=== PATIENT | female | born 1965 | race Two or more races ===

== ENCOUNTER 2018-11-22 17:12 | Emergency (ER) | payer MEDICAID ==
[~2018-11-22] VITALS: Ht 149.9 cm; Wt 62.6 kg
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
--- NOTE | 2018-11-22 17:48 | NUR ---
DR CALLAHAN AT BEDSIDE
[2018-11-22] MEDS ORDERED: CARBAMAZEPINE 200 MG TABLET PO ONE (18:00)
[2018-11-22 18:06] LABS: BASOPHILS # (AUTO) 0.1 /CMM (0.0-0.2); BASOPHILS % (AUTO) 0.9 % (0.0-2.0); EOSINOPHILS % (AUTO) 2.8 % (0.0-6.0); HEMATOCRIT 42 % (33-45); HEMOGLOBIN 14.5 g/dL (11.5-14.8); LYMPHOCYTES # (AUTO) 1.5 /CMM (0.8-4.8); LYMPHOCYTES % (AUTO) 23.2 % (20.0-44.0); MEAN CORPUSCULAR HGB CONC 34 g/dl (31.0-36.0); MEAN CORPUSCULAR VOLUME 89 fL (82-100); MONOCYTES # (AUTO) 0.5 /CMM (0.1-1.30); MONOCYTES % (AUTO) 7.8 % (2.0-12.0); NEUTROPHILS # (AUTO) 4.1 /CMM (1.8-8.9); NEUTROPHILS % (AUTO) 65.3 % (43.0-81.0); PLATELET COUNT (AUTO) 191 /CMM (150-450); RED BLOOD CELL COUNT(AUTO) 4.79 MIL/uL (4.0-5.2); WHITE BLOOD COUNT (AUTO) 6.3 K/uL (4.3-11.0)
[2018-11-22 18:18] LABS: CALCIUM, SERUM 9.4 mg/dL (8.5-10.1); CREATININE 0.7 mg/dL (0.6-1.3); POTASSIUM 3.9 mmol/L (3.5-5.1)
[2018-11-22] MEDS ORDERED: CARBAMAZEPINE 200 MG TABLET ONE (18:21)
--- NOTE | 2018-11-22 18:23 | NUR ---
OUT FOR CT HEAD AND CERVICAL SPINE
--- NOTE | 2018-11-22 19:38 | NUR ---
REPORT GIVEN TO CHRISTIE RICO FOR JINNY
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
[2018-11-22 20:37] VITALS: BP 138/85
--- NOTE | 2018-11-22 20:39 | NUR ---
PT REC'D A COPY OF THE DISK. PT AMBULATED OUT WITH A STEADY GAIT. PT'S SON IS DRIVING PT HOME.
== END 2018-11-22 20:39 | disposition home or self-care (01) ==
LOC: ER 17:14 → EDBD 17:14 → ER 20:39
DX: S52.134A Nondisplaced fracture of neck of right radius, initial encounter for closed fracture (principal); G40.909 Epilepsy, unspecified, not intractable, without status epilepticus; I10 Essential (primary) hypertension; E78.5 Hyperlipidemia, unspecified; Z88.6 Allergy status to analgesic agent; X58.XXXA Exposure to other specified factors, initial encounter; Y93.89 Activity, other specified; Y92.811 Bus as the place of occurrence of the external cause; Y99.8 Other external cause status
CPT/HCPCS: 29105; 36415; 70450; 71045; 72125; 73080; 80048; 82962; 85025; 93005; 99284; A4606